=== PATIENT | female | born 1990 | race Caucasian/White ===

== ENCOUNTER 2019-06-23 10:37 | Emergency (ER) | payer MEDICAID ==
[~2019-06-23] VITALS: Ht 165.1 cm; Wt 67.3 kg
[2019-06-23 10:48] VITALS: Ht 165.1 cm; Wt 67.3 kg
[2019-06-23] MEDS ORDERED: GABAPENTIN100 MG PO (10:53)
[2019-06-23] MEDS ORDERED: KLONOPIN1 MG PO (10:54)
[2019-06-23 11:14] LABS: BASOPHILS 0.3 % (0-2); EOSINOPHILS 0.6 % (0-7); HEMATOCRIT 37.8 % (36.0-48.0); HEMOGLOBIN 12.1 g/dL (12-16); IMMATURE GRANULOCYTES 0.7 % (0-5); LYMPHOCYTES 17.5 % (15-50); MCH 28.2 pg (26.0-34.0); MCV 88.1 fL (80.0-100.0); MEAN PLATELET VOLUME 10.2 fL (7.4-10.4); MONOCYTES 7.3 % (2-11); NEUTROPHILS 73.6 % (40-80); RBC 4.29 10x6/uL (4.00-5.40); RDW 17.4 % (11.5-14.5); WBC 6.8 10x3/uL (4.8-10.8)
[2019-06-23 11:16] LABS: PLATELET COUNT 126 10x3/uL (130-400)
[2019-06-23 11:34] LABS: ALBUMIN 3.3 g/dL (3.4-5.0); ALKALINE PHOSPHATASE 101 U/L (46-116); ALT (SGPT) 21 U/L (10-68); BILIRUBIN - TOTAL 0.24 mg/dL (0.2-1.3); CALC OSMOLALITY 280 mosm/kg (275-300); CALCIUM 8.7 mg/dL (8.5-10.1); CARBON DIOXIDE 21.9 mmol/L (21.0-32.0); CHLORIDE - SERUM 107 mmol/L (98-107); CREATININE - SERUM 0.8 mg/dL (0.6-1.3); GLUCOSE 82 mg/dL (74-106); POTASSIUM - SERUM 3.8 mmol/L (3.5-5.1); PROTEIN - SERUM 7.3 g/dL (6.4-8.2); SODIUM 142 mmol/L (136-145); UREA NITROGEN 10 mg/dL (7-18); eGFR NON AFRICAN AMERICAN 90 mL/min (90-120)
[2019-06-23 14:39] VITALS: BP 126/70
== END 2019-06-23 14:39 | disposition home or self-care (01) ==
LOC: D.ER 10:37
PROVIDERS: Family Medicine
DX: R60.9 Edema, unspecified (principal); F17.210 Nicotine dependence, cigarettes, uncomplicated